=== PATIENT | female | born 1940 | race Caucasian/White ===

== ENCOUNTER 2018-03-05 13:04 | Outpatient (REF) | payer MEDICARE, MEDICAID, SELFPAY ==
[2018-03-05 20:33] LABS: HCT 33.4 % (36.0-46.0); HGB 10.4 g/dL (12.0-15.5); Mean Corp. HGB Concentration 31.1 g/dL (32.0-36.0); Mean Corpuscular Hemoglobin 28.6 pg (27.0-33.0); Mean Corpuscular Volume 91.8 fL (80-95); Mean Platelet Volume 10.2 fL (8.0-11.0); Platelet Count 238 x1000/uL (130-400); RBC 3.64 m/cumm (4.00-5.20); RBC Distribution Width 12.8 % (11.7-14.6); White Blood Cell Count 6.67 k/cumm (4.4-10.8)
[2018-03-05 21:21] LABS: ALT 29 U/L (12-78); AST 23 U/L (15-37); Albumin 3.8 g/dL (3.4-5.0); Alkaline Phosphatase 107 U/L (46-116); Bilirubin, Total 0.2 mg/dL (0.2-1.0); Cholesterol 135 mg/dL (50-200); HDL Cholesterol 40 mg/dL (40-60); LDL CHOLESTEROL 69 mg/dL (<100); Total Protein 7.1 g/dL (6.4-8.2); Triglyceride 282 mg/dL (30-150); Vitamin B12 302 pg/mL (193-986)
[2018-03-05 21:34] LABS: Bilirubin, Direct < 0.05 mg/dL (0.00-0.20)
== END 2018-03-05 13:24 ==
LOC: NCHCN 13:04
PROVIDERS: Visit Provider Nurse Practitioner Family
DX: E11.9 Type 2 diabetes mellitus without complications (principal); I10 Essential (primary) hypertension; D51.9 Vitamin B12 deficiency anemia, unspecified; D63.8 Anemia in other chronic diseases classified elsewhere; E78.5 Hyperlipidemia, unspecified
CPT/HCPCS: 80061; 80076; 83721; 85027; 82607

== ENCOUNTER 2018-05-16 18:19 | Outpatient (REF) | payer MEDICARE, MEDICAID, SELFPAY ==
[2018-05-16 21:04] LABS: HCT 30.1 % (36.0-46.0); HGB 9.5 g/dL (12.0-15.5); Mean Corp. HGB Concentration 31.6 g/dL (32.0-36.0); Mean Corpuscular Hemoglobin 29.2 pg (27.0-33.0); Mean Corpuscular Volume 92.6 fL (80-95); Mean Platelet Volume 10.2 fL (8.0-11.0); Platelet Count 209 x1000/uL (130-400); RBC 3.25 m/cumm (4.00-5.20); White Blood Cell Count 6.95 k/cumm (4.4-10.8)
[2018-05-16 21:21] LABS: Anion Gap 8.8 mmol/L (3-11); BUN 21 mg/dL (7-18); CO2 28.2 mmol/L (21.0-32.0); CREATININE 1.22 mg/dL (0.55-1.02); Calcium 8.7 mg/dL (8.5-10.1); Chloride 106 mmol/L (98-107); Estimated GFR 42.74 (mL/min/1.73m2); Glucose 95 mg/dL (70-100); Magnesium 1.2 mg/dL (1.8-2.4); NT-proBNP 501 pg/mL; Potassium 5.1 mmol/L (3.5-5.1); Sodium 143 mmol/L (136-145); TSH 2.99 uIU/mL (0.358-3.74)
== END 2018-05-16 18:39 ==
LOC: NCHCN 18:19
PROVIDERS: Visit Provider Registered Nurse
DX: R06.02 Shortness of breath (principal); R06.2 Wheezing; I10 Essential (primary) hypertension; E78.5 Hyperlipidemia, unspecified; E11.9 Type 2 diabetes mellitus without complications; D63.8 Anemia in other chronic diseases classified elsewhere
CPT/HCPCS: 80048; 85027; 83735; 83880; 84443

== ENCOUNTER 2018-05-31 12:13 | Outpatient (REF) | payer MEDICARE, MEDICAID, SELFPAY ==
[2018-05-31 20:57] LABS: Anion Gap 7.7 mmol/L (3-11); BUN 23 mg/dL (7-18); CO2 28.3 mmol/L (21.0-32.0); CREATININE 1.07 mg/dL (0.55-1.02); Chloride 104 mmol/L (98-107); Estimated GFR 49.72 (mL/min/1.73m2); Glucose 96 mg/dL (70-100); Potassium 5.4 mmol/L (3.5-5.1); Sodium 140 mmol/L (136-145)
[2018-05-31 20:59] LABS: HCT 32.1 % (36.0-46.0); HGB 10.4 g/dL (12.0-15.5); Mean Corp. HGB Concentration 32.4 g/dL (32.0-36.0); Mean Corpuscular Hemoglobin 29.3 pg (27.0-33.0); Mean Corpuscular Volume 90.4 fL (80-95); Mean Platelet Volume 10.3 fL (8.0-11.0); Platelet Count 261 x1000/uL (130-400); RBC 3.55 m/cumm (4.00-5.20); RBC Distribution Width 12.9 % (11.7-14.6)
== END 2018-05-31 12:33 ==
LOC: NCHCN 12:13
PROVIDERS: Visit Provider Nurse Practitioner Family
DX: I10 Essential (primary) hypertension (principal); E11.9 Type 2 diabetes mellitus without complications; N18.9 Chronic kidney disease, unspecified; D63.8 Anemia in other chronic diseases classified elsewhere
CPT/HCPCS: 80048; 85027

== ENCOUNTER 2018-06-18 11:26 | Outpatient (REF) | payer MEDICARE, MEDICAID, SELFPAY ==
[2018-06-18 21:47] LABS: Potassium 5.1 mmol/L (3.5-5.1)
== END 2018-06-18 11:46 ==
LOC: NCHCN 11:26
PROVIDERS: Visit Provider Nurse Practitioner Family
DX: Z86.39 Personal history of other endocrine, nutritional and metabolic disease (principal)
CPT/HCPCS: 84132

== ENCOUNTER 2018-08-01 10:33 | Outpatient (REF) | payer MEDICARE, MEDICAID, SELFPAY ==
[2018-08-01 20:53] LABS: HCT 33.9 % (36.0-46.0); HGB 10.8 g/dL (12.0-15.5); Mean Corp. HGB Concentration 31.9 g/dL (32.0-36.0); Mean Corpuscular Volume 90.9 fL (80-95); Mean Platelet Volume 10.1 fL (8.0-11.0); Platelet Count 282 x1000/uL (130-400); RBC 3.73 m/cumm (4.00-5.20); RBC Distribution Width 12.6 % (11.7-14.6); White Blood Cell Count 7.18 k/cumm (4.4-10.8)
[2018-08-01 21:00] LABS: Anion Gap 7.4 mmol/L (3-11); BUN 17 mg/dL (7-18); CO2 27.6 mmol/L (21.0-32.0); CREATININE 1.02 mg/dL (0.55-1.02); Chloride 103 mmol/L (98-107); Estimated GFR 52.55 (mL/min/1.73m2); Glucose 114 mg/dL (70-100); Potassium 5.5 mmol/L (3.5-5.1); Sodium 138 mmol/L (136-145)
== END 2018-08-01 10:53 ==
LOC: NCHCN 10:33
PROVIDERS: Visit Provider Nurse Practitioner Family
DX: R53.83 Other fatigue (principal); J44.1 Chronic obstructive pulmonary disease with (acute) exacerbation; K92.1 Melena; D63.8 Anemia in other chronic diseases classified elsewhere; Z86.39 Personal history of other endocrine, nutritional and metabolic disease
CPT/HCPCS: 80048; 85027

== ENCOUNTER 2018-08-27 12:58 | Outpatient (REF) | payer MEDICARE, MEDICAID, SELFPAY ==
[2018-08-27 21:32] LABS: Anion Gap 7.7 mmol/L (3-11); BUN 18 mg/dL (7-18); CO2 27.3 mmol/L (21.0-32.0); CREATININE 1.08 mg/dL (0.55-1.02); Calcium 9.2 mg/dL (8.5-10.1); Chloride 101 mmol/L (98-107); Estimated GFR 49.19 (mL/min/1.73m2); Glucose 105 mg/dL (70-100); Potassium 4.9 mmol/L (3.5-5.1); Sodium 136 mmol/L (136-145)
== END 2018-08-27 13:18 ==
LOC: NCHCN 12:58
PROVIDERS: Visit Provider Nurse Practitioner Family
DX: G89.4 Chronic pain syndrome (principal); E87.5 Hyperkalemia
CPT/HCPCS: 80048

== ENCOUNTER 2018-10-21 15:41 | Outpatient (REF) | payer MEDICARE, MEDICAID, SELFPAY ==
[2018-10-21 20:34] LABS: HCT 31.6 % (36.0-46.0); HGB 9.9 g/dL (12.0-15.5); Mean Corp. HGB Concentration 31.3 g/dL (32.0-36.0); Mean Corpuscular Hemoglobin 28.5 pg (27.0-33.0); Mean Corpuscular Volume 91.1 fL (80-95); Mean Platelet Volume 9.9 fL (8.0-11.0); Platelet Count 277 x1000/uL (130-400); RBC 3.47 m/cumm (4.00-5.20); RBC Distribution Width 12.5 % (11.7-14.6); White Blood Cell Count 8.47 k/cumm (4.4-10.8)
[2018-10-21 20:56] LABS: ALT 22 U/L (12-78); AST 18 U/L (15-37); Albumin 3.8 g/dL (3.4-5.0); Alkaline Phosphatase 113 U/L (46-116); Anion Gap 9.4 mmol/L (3-11); BUN 21 mg/dL (7-18); Bilirubin, Total 0.2 mg/dL (0.2-1.0); CO2 27.6 mmol/L (21.0-32.0); CREATININE 1.13 mg/dL (0.55-1.02); Chloride 103 mmol/L (98-107); Estimated GFR 46.69 (mL/min/1.73m2); Glucose 99 mg/dL (70-100); NT-proBNP 203 pg/mL; Potassium 4.6 mmol/L (3.5-5.1); Sodium 140 mmol/L (136-145); Total Protein 7.1 g/dL (6.4-8.2)
== END 2018-10-21 16:01 ==
LOC: NCHCN 15:41
PROVIDERS: Visit Provider Nurse Practitioner Family
DX: D63.8 Anemia in other chronic diseases classified elsewhere (principal); R60.9 Edema, unspecified
CPT/HCPCS: 80053; 85027; 83880

== ENCOUNTER 2019-02-13 09:08 | Outpatient (REF) | payer MEDICARE, MEDICAID, SELFPAY ==
[2019-02-13 22:38] LABS: COMMENT (LAB VIEW ONLY) 130.15 mg/dL; Microalb ug/mg Crea 11.1 ug/mg Cr
== END 2019-02-13 09:28 ==
LOC: NCHCO 09:08
PROVIDERS: Visit Provider Nurse Practitioner Family
DX: E11.9 Type 2 diabetes mellitus without complications (principal)
CPT/HCPCS: 82043; 82570

== ENCOUNTER 2019-04-29 12:27 | Outpatient (REF) | payer MEDICARE, MEDICAID, SELFPAY ==
[2019-04-29 22:35] LABS: HCT 32.9 % (36.0-46.0); HGB 10.3 g/dL (12.0-15.5); Mean Corp. HGB Concentration 31.3 g/dL (32.0-36.0); Mean Corpuscular Hemoglobin 28.2 pg (27.0-33.0); Mean Corpuscular Volume 90.1 fL (80-95); Mean Platelet Volume 9.8 fL (8.0-11.0); Platelet Count 281 x1000/uL (130-400); RBC 3.65 m/cumm (4.00-5.20); RBC Distribution Width 12.9 % (11.7-14.6); White Blood Cell Count 7.58 k/cumm (4.4-10.8)
[2019-04-29 23:18] LABS: Anion Gap 8.5 mmol/L (3-11); BUN 16 mg/dL (7-18); CO2 29.5 mmol/L (21.0-32.0); CREATININE 1.08 mg/dL (0.55-1.02); Calcium 8.8 mg/dL (8.5-10.1); Chloride 100 mmol/L (98-107); Estimated GFR 49.07 (mL/min/1.73m2); Ferritin 13 ng/mL (8-252); Glucose 171 mg/dL (74-106); Magnesium 1.2 mg/dL (1.8-2.4); Sodium 138 mmol/L (136-145); Vitamin B12 498 pg/mL (193-986)
[2019-04-29 23:28] LABS: Iron 74 ug/dL (50-170)
== END 2019-04-29 12:47 ==
LOC: NCHCN 12:27
PROVIDERS: Visit Provider Nurse Practitioner Family
DX: E11.9 Type 2 diabetes mellitus without complications (principal); D63.8 Anemia in other chronic diseases classified elsewhere; G89.4 Chronic pain syndrome; G25.81 Restless legs syndrome; D23.9 Other benign neoplasm of skin, unspecified; E61.2 Magnesium deficiency; K21.9 Gastro-esophageal reflux disease without esophagitis
CPT/HCPCS: 80048; 85027; 82607; 82728; 83540; 83735

== ENCOUNTER 2020-04-12 23:25 | Outpatient (REF) | payer OTHER, MEDICAID, SELFPAY ==
[2020-04-12 22:25] LABS: COMMENT (LAB VIEW ONLY) 84.41 mg/dL; Microalb ug/mg Crea 7.1 ug/mg Cr
== END 2020-04-12 23:45 ==
LOC: NCHCN 23:25
PROVIDERS: Visit Provider Nurse Practitioner Family
DX: E11.9 Type 2 diabetes mellitus without complications (principal); I10 Essential (primary) hypertension
CPT/HCPCS: 82043; 82570

== ENCOUNTER 2020-07-13 20:36 | Outpatient (REF) | payer OTHER, MEDICAID, SELFPAY ==
[2020-07-13 14:14] LABS: BUN 20 mg/dL (7-18); CREATININE 1.1 mg/dL (0.55-1.02); Calcium 8.9 mg/dL (8.5-10.1); Chloride 105 mmol/L (98-107); Estimated GFR 47.91 (mL/min/1.73m2); Glucose 150 mg/dL (74-106); Magnesium 1.5 mg/dL (1.8-2.4); Potassium 4.7 mmol/L (3.5-5.1); Sodium 141 mmol/L (136-145); Vitamin B12 686 pg/mL (193-986)
[2020-07-13 14:32] LABS: HCT 37.1 % (36.0-46.0); HGB 11.9 g/dL (11.2-15.7); MCH 29.8 pg (27.0-33.0); MCHC 32.1 % (32.0-36.0); MPV 10.3 fL (8.0-11.0); Platelet Count 240 10^3/uL (130-400); RBC 3.99 10^6/uL (3.93-5.22); RDW 11.7 % (11.7-14.6); RDW-SD 39.7 fL; WBC 7.65 10^3/uL (4.4-10.8)
[2020-07-13 14:54] LABS: Hemoglobin A1C 7.4 % (<5.7)
== END 2020-07-13 20:37 | disposition home or self-care (01) ==
LOC: NCHCN 20:36
PROVIDERS: Visit Provider Nurse Practitioner Family
DX: E11.9 Type 2 diabetes mellitus without complications (principal); I10 Essential (primary) hypertension; D63.8 Anemia in other chronic diseases classified elsewhere; K21.9 Gastro-esophageal reflux disease without esophagitis; E61.2 Magnesium deficiency; D51.9 Vitamin B12 deficiency anemia, unspecified
CPT/HCPCS: 80048; 85027; 82607; 83036; 83735

== ENCOUNTER 2020-09-20 16:15 | Outpatient (REF) | payer OTHER, MEDICAID, SELFPAY ==
--- OUTSIDE RECORDS SUMMARY | 2020-09-20 16:18 | XMS_ITS ---
:1940 Author Care Team Providers Name Role Phone Ruy Donaldson Primary Care Provider Unavailable Allergies Code Code System Name Reaction Severity Status Onset Penicillins ? ? Active ? Sulfa ? ? Active ? (Sulfonamide Antibiotics) Medications Name Status Start Date Stop Date ? ? amlodipine 5 mg tablet Active ? Not avail able ammonium lactate 12 % topical cream Active ? Not available aspirin 81 mg tablet,delayed release Active ? Not available atorvastatin 40 mg tablet Active ? Not av ailable carvedilol 25 mg tablet Active ? Not avai lable citalopram 20 mg tablet Active ? Not avai lable [employer] Active ? Not iam ilable furosemide 20 mg tablet Active ? Not avai lable gabapentin 300 mg capsule Active ? Not av ailable hydrocodone 5 mg-acetaminophen 325 mg Active ? Not available tablet Lantus Solostar U-100 Insulin 100 unit/mL Active ? Not available (3 mL) subcutaneous pen loratadine 10 mg tablet Active ? Not avai lable losartan 25 mg tablet Active ? Not availa ble metformin 1,000 mg tablet Active ? Not av ailable mupirocin 2 % topical ointment Active ? N ot available nicotine (polacrilex) 4 mg gum Active ? N ot available omeprazole 20 mg capsule,delayed release Active ? Not available omeprazole 40 mg capsule,delayed release Active ? Not available Ventolin HFA 90 mcg/actuation aerosol Active ? Not available inhaler Vitamin B-12 1,000 mcg tablet Active ? N ot available Vitamin D3 25 mcg (1,000 unit) tablet Active ? Not available Vitamin D3 50 mcg (2,000 unit) capsule Active ? Not available Problems Name Status Onset Date Source ? Carpal Tunnel Syndrome of Left Wrist Active ? History Procedure by Method Active ? History Procedures None recorded. Results Lab Results Date Name Specimen Result Interpretation Description Value Range Status Address ? 03/16/2017 Venipuncture BLD ? Venpn* ? ? Final [facility] ab (Internal) : [address], [place] 03/16/2017 HbA1C BLD High Ha1C 7.0 % 4.0-6 Final [facility] (Hemoglobin .0 % Hospi joo Lab a1C), Blood (Inte rnal): [address] 03/16/2017 BMP, Serum or S High g/r 110 74-10 Final [facility] Plasma mg/dL 6 Hospital L ab mg/dL (Internal) : [address] ? ? S High Bun 18 7-17 Final [facility] try mg/dL mg/dL Hospital L ab (Internal) : [address] ? ? S ? Crea 0.90 0.52- Final [facility] try mg/dL 1.04 Hospital L ab mg/dL (Internal) : [address] ? ? S ? Ca 8.8 8.4-1 Final [facility] try mg/dL 0.2 Hospital L ab mg/dL (Internal) : [address] ? ? S ? Na 137 137-1 Final [facility] try mmol/L 45 Hospital L ab mmol/ (Internal) : L [address] ? ? S ? K 5.1 3.5-5 Final [facility] try mmol/L .1 Hospital L ab mmol/ (Internal) : L [address] ? ? S ? Cl 101 98-10 Final [facility] try mmol/L 7 Hospital L ab mmol/ (Internal) : L [address] ? ? S ? Tco2 26.0 22.0- Final [facility] try mmol/L 30.0 Hospital L ab mmol/ (Internal) : L [address] 03/16/2017 CBC W/ Auto BLD ? Wbc 9.9 5.0-1 Final [facility] Country Diff 10*3/u 0.0 Hospital L ab L 10*3/ (Internal) : uL [address] ? ? BLD Low Rbc 3.32 4.10- Final [facility] try 10*6/u 5.30 Hospital L ab L 10*6/ (Internal) : uL [address] ? ? BLD Low Hgb 9.9 12.0- Final [facility] try g/dL 16.0 Hospital L ab g/dL (Internal) : [address] ? ? BLD Low Hct 30.6 % 37.0- Final [place] [place] [facility] try 47.0 Hospital L ab % (Internal) : [address] ? ? BLD ? Mcv 92.2 80.0- [facility] fL 96.0 [facility] fL (Internal) : [address] ? ? BLD ? Mch 29.8 26.0- Final [facility] try pg 32.0 Hospital L ab pg (Internal) : [address] [place] ? ? BLD ? Mchc 32.4 31.0- Final [place] [place] [facility] try g/dL 35.0 Hospital L ab g/dL (Internal) : [address] [place] ? ? BLD ? Rdw 12.7 % 11.5- Final [place] [facility] try 14.5 Hospital L ab % (Internal) : [address] ? ? BLD ? Plt 224 130-4 Final [place] [facility] try 10*3/u 50 Hospital L ab L 10*3/ (Internal) : [address] ? ? BLD ? Anc 5.61 ? Final [facility] try 10*3/u Hospital L ab L (Internal) : [address] [place] ? ? BLD ? Neutro 57.0 % 40.0- Final [place] [facility] 75.0 Hospital L ab % (Internal) : [address] [place] ? ? BLD ? Lymph 31.9 % 20.0- Final [place] [place] [facility] try 50.0 Hospital L ab % (Internal) : [address] ? ? BLD ? [place] 7.5 % 2.0-1 Final [place] try 0.0 % Hospital L ab (Internal) : [address] [place] ? ? BLD ? Eos 2.8 % 1.0-6 Final [place] try .0 % Hospital L ab (Internal) : [address] [place] ? ? BLD ? Baso 0.5 % 0.0-1 Final [place] [place] [facility] try .0 % Hospital L ab (Internal) : [address] ? ? BLD ? Ig 0.3 % 0.0-0 Final [place] try .9 % Hospital L ab (Internal) : [address] Past Encounters None recorded. Social History Tobacco Smoking Status Former Smoker Vaccine List None recorded. Plan of Care Reminders Provider Appointments None ? ? recorded. Lab None ? ? recorded. Referral None ? ? recorded. Procedures None ? ? recorded. Surgeries None ? ? recorded. Imaging None ? ? recorded. Vitals 01/11/2018 01:00PM Consult 30 Height Weight BMI Blood Pressure 157.48 cm 80.29 kg 32.4 kg/m2 120/54 mm[Hg] 03/16/2017 Height Blood Pressure 157.48 cm 154/62 mm[Hg] 03/16/2017 Weight 80.2 kg 02/27/2017 Height Blood Pressure 157.48 cm 132/56 mm[Hg] 02/27/2017 Weight 80.01 kg 07/30/2015 Height Weight 157.48 cm 78.02 kg
[2020-09-20 21:29] LABS: HCT 31.8 % (36.0-46.0); HGB 9.9 g/dL (11.2-15.7); MCH 28.3 pg (27.0-33.0); MCHC 31.1 % (32.0-36.0); MCV 90.9 fL (80-95); MPV 10.6 fL (8.0-11.0); Platelet Count 249 10^3/uL (130-400); RDW 12.4 % (11.7-14.6); RDW-SD 41.2 fL; WBC 7.78 10^3/uL (4.4-10.8)
[2020-09-20 21:48] LABS: Anion Gap 7.3 mmol/L (3-11); BUN 19 mg/dL (7-18); CO2 27.7 mmol/L (21.0-32.0); CREATININE 1.2 mg/dL (0.55-1.02); Calcium 8.5 mg/dL (8.5-10.1); Chloride 104 mmol/L (98-107); Estimated GFR 43.34 (mL/min/1.73m2); Glucose 168 mg/dL (74-106); Magnesium 1.4 mg/dL (1.8-2.4); Potassium 4.6 mmol/L (3.5-5.1); Sodium 139 mmol/L (136-145); TSH 1.58 uIU/mL (0.36-3.74)
[2020-09-21 17:49] LABS: Ferritin 11 ng/mL (8-252); Folate 12.9 ng/mL (8.6-20.0); Vitamin B12 823 pg/mL (193-986)
== END 2020-09-20 16:16 | disposition home or self-care (01) ==
LOC: NCHCN 16:15
PROVIDERS: Visit Provider Nurse Practitioner Family
DX: D63.8 Anemia in other chronic diseases classified elsewhere (principal); D51.9 Vitamin B12 deficiency anemia, unspecified; G47.62 Sleep related leg cramps
CPT/HCPCS: 80048; 85027; 82607; 82728; 82746; 83735; 84443

== ENCOUNTER 2020-11-03 19:26 | Outpatient (REF) | payer OTHER, MEDICAID, SELFPAY ==
[2020-11-03 21:44] LABS: Abs Immature Grans 0.01 10^3/uL (0.0-0.06); Absolute Basophil Count 0.05 10^3/uL (0.0-0.2); Absolute Eosinophil Count 0.16 10^3/uL (0.0-0.7); Absolute Lymphocyte Count 2.62 10^3/uL (1.2-3.4); Absolute Monocyte Count 0.62 10^3/uL (0.1-0.8); Absolute Neutrophil Count 4.27 10^3/uL (1.2-6.7); Basophils % 0.6; Eosinophils % 2.1; HCT 36.7 % (36.0-46.0); HGB 11.3 g/dL (11.2-15.7); Immature Grans % 0.1; Lymphocytes % 33.9; MCH 27.8 pg (27.0-33.0); MCHC 30.8 % (32.0-36.0); MCV 90.4 fL (80-95); MPV 10.4 fL (8.0-11.0); Neutrophils % 55.3; Nucleated RBC 0 %; Platelet Count 273 10^3/uL (130-400); RBC 4.06 10^6/uL (3.93-5.22); RDW 13.1 % (11.7-14.6); RDW-SD 43.2 fL; WBC 7.73 10^3/uL (4.4-10.8)
[2020-11-03 21:50] LABS: Iron 78 ug/dL (50-170); Total Iron Binding Capacity 426 ug/dL (250-450); Transferrin Sat 18 % (15-50)
[2020-11-03 22:18] LABS: Anion Gap 8.9 mmol/L (3-11); BUN 15 mg/dL (7-18); CO2 28.1 mmol/L (21.0-32.0); Calcium 8.7 mg/dL (8.5-10.1); Chloride 101 mmol/L (98-107); Estimated GFR 53.48 (mL/min/1.73m2); Ferritin 15 ng/mL (8-252); Folate 16.6 ng/mL (8.6-20.0); Glucose 137 mg/dL (74-106); Potassium 5.1 mmol/L (3.5-5.1); Sodium 138 mmol/L (136-145); Vitamin B12 900 pg/mL (193-986)
== END 2020-11-03 19:27 | disposition home or self-care (01) ==
LOC: NCHCN 19:26
PROVIDERS: Visit Provider Nurse Practitioner Family
DX: D63.8 Anemia in other chronic diseases classified elsewhere (principal); D51.9 Vitamin B12 deficiency anemia, unspecified
CPT/HCPCS: 80048; 82607; 82728; 82746; 83540; 83550; 85025

== ENCOUNTER 2021-01-25 11:57 | Outpatient (REF) | payer OTHER, MEDICAID, SELFPAY ==
[2021-01-25 16:16] LABS: COMMENT (LAB VIEW ONLY) 73.93 mg/dL; Microalb ug/mg Crea 11.5 ug/mg Cr
== END 2021-01-25 11:58 | disposition home or self-care (01) ==
LOC: NCHCN 11:57
PROVIDERS: Referring Provider Nurse Practitioner Family; Visit Provider Nurse Practitioner Family
DX: E11.9 Type 2 diabetes mellitus without complications (principal); I10 Essential (primary) hypertension
CPT/HCPCS: 82043; 82570

== ENCOUNTER 2021-04-13 10:59 | Outpatient (REF) | payer OTHER, MEDICAID, SELFPAY ==
[2021-04-13 22:14] LABS: MCH 28.9 pg (27.0-33.0); MCHC 30.8 % (32.0-36.0); MPV 10.2 fL (8.0-11.0); Platelet Count 268 10^3/uL (130-400); RBC 4.15 10^6/uL (3.93-5.22); RDW 12.5 % (11.7-14.6); RDW-SD 43.7 fL
[2021-04-13 22:18] LABS: Anion Gap 9.5 mmol/L (3-11); BUN 20 mg/dL (7-18); CO2 27.5 mmol/L (21.0-32.0); CREATININE 1.2 mg/dL (0.55-1.02); Calcium 8.9 mg/dL (8.5-10.1); Chloride 105 mmol/L (98-107); Estimated GFR 43.23 (mL/min/1.73m2); Glucose 119 mg/dL (74-106); Magnesium 1.6 mg/dL (1.8-2.4); Potassium 4.9 mmol/L (3.5-5.1); Sodium 142 mmol/L (136-145)
[2021-04-13 22:55] LABS: Hemoglobin A1C 7.4 % (<5.7)
== END 2021-04-13 11:00 | disposition home or self-care (01) ==
LOC: NCHCN 10:59
PROVIDERS: Visit Provider Nurse Practitioner Family
DX: E11.9 Type 2 diabetes mellitus without complications (principal); D51.9 Vitamin B12 deficiency anemia, unspecified; E61.2 Magnesium deficiency
CPT/HCPCS: 80048; 85027; 83036; 83735

== ENCOUNTER 2021-08-03 17:19 | Outpatient (REF) | payer MEDICARE, MEDICAID, SELFPAY ==
[2021-08-03 21:32] LABS: Abs Immature Grans 0.02 10^3/uL (0.0-0.06); Absolute Basophil Count 0.04 10^3/uL (0.0-0.2); Absolute Eosinophil Count 0.17 10^3/uL (0.0-0.7); Absolute Lymphocyte Count 3.68 10^3/uL (1.2-3.4); Absolute Neutrophil Count 4.51 10^3/uL (1.2-6.7); Basophils % 0.4; Eosinophils % 1.8; HCT 38.3 % (36.0-46.0); HGB 12.2 g/dL (11.2-15.7); Immature Grans % 0.2; Lymphocytes % 39.9; MCH 29.1 pg (27.0-33.0); MCHC 31.9 % (32.0-36.0); MCV 91.4 fL (80-95); MPV 10.1 fL (8.0-11.0); Monocytes % 8.7; Nucleated RBC 0 %; Platelet Count 252 10^3/uL (130-400); RBC 4.19 10^6/uL (3.93-5.22); RDW 12.5 % (11.7-14.6); RDW-SD 41.3 fL; WBC 9.22 10^3/uL (4.4-10.8)
[2021-08-03 21:49] LABS: ALT 29 U/L (14-59); AST 22 U/L (15-37); Albumin 4.3 g/dL (3.4-5.0); Alkaline Phosphatase 128 U/L (46-116); Anion Gap 8.3 mmol/L (3-11); BUN 22 mg/dL (7-18); Bilirubin, Total 0.4 mg/dL (0.2-1.0); CO2 27.7 mmol/L (21.0-32.0); CREATININE 1.2 mg/dL (0.55-1.02); Calcium 8.9 mg/dL (8.5-10.1); Chloride 103 mmol/L (98-107); Estimated GFR 43.23 (mL/min/1.73m2); Glucose 103 mg/dL (74-106); Potassium 4.7 mmol/L (3.5-5.1); Sodium 139 mmol/L (136-145); Total Protein 7.8 g/dL (6.4-8.2)
--- OUTSIDE RECORDS SUMMARY | 2021-08-04 15:05 | XMS_ITS | CCD ---
:1940 Author Care Team Providers Name Role Phone MERVAT Attending Physician Unavailable Vital Signs Unknown or Not Available. Allergies Allergy Code Allergy Type Reaction Status PENICILLINS (CLASS) 49910 Drug allergy ARM SWELLING Active SULFA (sulfonamide) 0 Drug allergy Pt Unsure Active LATEX 0 Allergy to substance RASH Active Procedures Unknown or Not Available. History of Immunizations Unknown or Not Available. Problems Problem Code Start Date Resolved Date Status Malignant breast [id number] Active neoplasm Results Unknown or Not Available. Active Medications Medication Code Dose Units Frequency Route Modification Start Date/Time Carvedilol 954357 25 MILLIGRAMS TWICE A DAY ORAL 2016 25MG Oral 12:18 Tablet Prescription Detail TAKE 25 MILLIGRAMS ORAL TWIC E A DAY GABAPENTIN 300 0 300 MILLIGRAMS BEDTIME ORAL 2016 MG TABLET 12:18 Prescription Detail TAKE 300 MILLIGRAMS ORAL BED TIME Loratadine 10MG 761981 10 MILLIGRAMS DAILY ORAL 09/22 Oral Tablet 12:18 Prescription Detail TAKE 10 MILLIGRAMS ORAL GIFTY Y Omeprazole 20MG 183426 20 MILLIGRAMS TWICE A ORAL 09/22 Oral Capsule, DAY 12:18 Delayed Release Prescription Detail TAKE 20 MILLIGRAMS ORAL TWIC E A DAY VITAMIN B12 0 000 MICROGRAM DAILY ORAL 09/22/2016 1,000 MCG 12:18 TABLET Prescription Detail TAKE 000 MICROGRAM ORAL GIFTY Y amLODIPine 161098 1 TABLET DAILY ORAL 11/24/2014 Besylate 5MG 11:00 Oral Tablet Prescription Detail TAKE 1 TABLET ORAL DAILY Citalopram 20MG 20021111 20 MILLIGRAMS TWICE A ORAL 11/24 Oral Tablet DAY 10:56 Prescription Detail TAKE 20 MILLIGRAMS ORAL TWIC E A DAY Chlorthalidone [id number] 25 MILLIGRAMS DAILY ORAL 25MG Oral Tablet 10:14 Prescription Detail TAKE 25 MILLIGRAMS ORAL GIFTY Y Aspirin 81MG 420540 81 MILLIGRAMS DAILY ORAL 11/25/19 15 Oral Tablet 10:04 Prescription Detail TAKE 81 MILLIGRAMS ORAL GIFTY Y HYDROcodone 890808 1 TABLET NEEDED ORAL 11/24/2014 bitartrate-acetaminophen EVERY 10:04 5MG-325MG Oral Tablet 6HRS Prescription Detail TAKE 1 TABLET ORAL NEEDED EVERY 6HRS MULTIVITAMINS 0 1 TABLET DAILY BY MOUTH 5 10:04 Prescription Detail TAKE 1 TABLET BY MOUTH DAILY Medications Administered During Visit Unknown or Not Available. Encounters Encounter Diagnosis Diagnosis Code Start Date Encounter for follow-up examination after Z08 01/05/2021 completed treatment for malignant neoplasm Social History Smoking Status Code Start Date End Date Former smoker [id number] 05/14/1986 Patient Decision Aids Unknown or Not Available. Discharge Instructions You were admitted to [facility] on 01/05/2021 11:29 with a principal diagnosis of Encounter for follow-up exa mination after completed treatment for malignant neoplasm You were discharged from [facility] on 01/05/2021 11:29 Should you have any questions prior to d ischarge, please contact a member of your healthcare team. If you have left the spital and have any questions, please contact your primary care physician. Chief Complaint and Reason For Visit Unknown or Not Available. Function Status Unknown or Not Available. Plan of Care Unknown or Not Available. Referral/Transition of Care Unknown or Not Available.
--- OUTSIDE RECORDS SUMMARY | 2021-08-04 15:05 | XMS_ITS | CCD ---
:1940 Author Care Team Providers Name Role Phone MERVAT Attending Physician Unavailable Vital Signs Unknown or Not Available. Allergies Allergy Code Allergy Type Reaction Status PENICILLINS (CLASS) 64948 Drug allergy ARM SWELLING Active SULFA (sulfonamide) 0 Drug allergy Pt Unsure Active LATEX 0 Allergy to substance RASH Active Procedures Unknown or Not Available. History of Immunizations Unknown or Not Available. Problems Problem Code Start Date Resolved Date Status Malignant breast [id number] Active neoplasm Results Unknown or Not Available. Active Medications Medication Code Dose Units Frequency Route Modification Start Date/Time Carvedilol 671340 25 MILLIGRAMS TWICE A DAY ORAL 2016 25MG Oral 12:18 Tablet Prescription Detail TAKE 25 MILLIGRAMS ORAL TWIC E A DAY GABAPENTIN 300 0 300 MILLIGRAMS BEDTIME ORAL 2016 MG TABLET 12:18 Prescription Detail TAKE 300 MILLIGRAMS ORAL BED TIME Loratadine 10MG 612984 10 MILLIGRAMS DAILY ORAL 09/22 Oral Tablet 12:18 Prescription Detail TAKE 10 MILLIGRAMS ORAL GIFTY Y Omeprazole 20MG 460961 20 MILLIGRAMS TWICE A ORAL 09/22 Oral Capsule, DAY 12:18 Delayed Release Prescription Detail TAKE 20 MILLIGRAMS ORAL TWIC E A DAY VITAMIN B12 0 000 MICROGRAM DAILY ORAL 09/22/2016 1,000 MCG 12:18 TABLET Prescription Detail TAKE 000 MICROGRAM ORAL GIFTY Y amLODIPine 795029 1 TABLET DAILY ORAL 11/24/2014 Besylate 5MG 11:00 Oral Tablet Prescription Detail TAKE 1 TABLET ORAL DAILY Citalopram 20MG 20021111 20 MILLIGRAMS TWICE A ORAL 11/24 Oral Tablet DAY 10:56 Prescription Detail TAKE 20 MILLIGRAMS ORAL TWIC E A DAY Chlorthalidone 03073915267 25 MILLIGRAMS DAILY ORAL 25MG Oral Tablet 10:14 Prescription Detail TAKE 25 MILLIGRAMS ORAL GIFTY Y Aspirin 81MG 588193 81 MILLIGRAMS DAILY ORAL 11/25/19 15 Oral Tablet 10:04 Prescription Detail TAKE 81 MILLIGRAMS ORAL GIFTY Y HYDROcodone 632482 1 TABLET NEEDED ORAL 11/24/2014 bitartrate-acetaminophen EVERY 10:04 5MG-325MG Oral Tablet 6HRS Prescription Detail TAKE 1 TABLET ORAL NEEDED EVERY 6HRS MULTIVITAMINS 0 1 TABLET DAILY BY MOUTH 5 10:04 Prescription Detail TAKE 1 TABLET BY MOUTH DAILY Medications Administered During Visit Unknown or Not Available. Encounters Encounter Diagnosis Diagnosis Code Start Date Encounter for screening mammogram for malignant [id number] 01/19/2021 neoplasm of breast Social History Smoking Status Code Start Date End Date Former smoker [id number] 05/14/1986 Patient Decision Aids Unknown or Not Available. Discharge Instructions You were admitted to [facility] on 01/19/2021 13:01 with a principal diagnosis of Encounter for screening tone mogram for malignant neoplasm of breast You were discharged from [facility] on 01/19/2021 13:01 Should you have any questions prior to d ischarge, please contact a member of your healthcare team. If you have left the ho spital and have any questions, please contact your primary care physician. Chief Complaint and Reason For Visit Unknown or Not Available. Function Status Unknown or Not Available. Plan of Care Unknown or Not Available. Referral/Transition of Care Unknown or Not Available.
--- OUTSIDE RECORDS SUMMARY | 2021-08-04 15:05 | XMS_ITS ---
[...] Venipuncture BLD ? Venpn* ? ? Final [facility] ab (Internal) : [address] [place] 03/16/2017 HbA1C BLD High Ha1C 7.0 % 4.0-6 Final [facility] (Hemoglobin .0 % Hospi joo Lab a1C), Blood (Inte rnal): [address] 03/16/2017 BMP, Serum or S High g/r 110 74-10 Final [facility] Plasma mg/dL 6 Hospital L ab mg/dL (Internal) : [address] ? ? S High Bun 18 7-17 Final [facility] try mg/dL mg/dL Hospital L ab (Internal) : [address] ? ? S ? Crea 0.90 0.52- Final [facility] try mg/dL 1.04 Hospital L ab mg/dL (Internal) : [address] ? ? S ? Ca 8.8 8.4-1 Final [facility] try mg/dL 0.2 Hospital L ab mg/dL (Internal) : [address] t ? ? S ? Na 137 137-1 Final [facility] try mmol/L 45 Hospital L ab mmol/ (Internal) : L [address] ? ? S ? K 5.1 3.5-5 Final [facility] try mmol/L .1 Hospital L ab mmol/ (Internal) : L [address] ? ? S ? Cl 101 98-10 Final [facility] try mmol/L 7 Hospital L ab mmol/ (Internal) : L [address] ? ? S ? Tco2 26.0 22.0- Final [facility] try mmol/L 30.0 Hospital L ab mmol/ (Internal) : L [address] 03/16/2017 CBC W/ Auto BLD ? Wbc 9.9 5.0-1 Final [facility] [place] Diff 10*3/u 0.0 Hospital L ab L 10*3/ (Internal) : uL [address] ? ? BLD Low Rbc 3.32 4.10- Final [place] [facility] try 10*6/u 5.30 Hospital L ab L 10*6/ (Internal) : uL [address] ? ? BLD Low Hgb 9.9 12.0- Final [facility] try g/dL 16.0 Hospital L ab g/dL (Internal) : [address] [place] ? ? BLD Low Hct 30.6 % 37.0- Final [place] [facility] try 47.0 Hospital L ab % (Internal) : [address] [place] ? ? BLD ? Mcv 92.2 80.0- Final [place] try fL 96.0 Hospital L ab fL (Internal) : [address] [place] ? ? BLD ? Mch 29.8 26.0- Final [place] [facility] try pg 32.0 Hospital L ab pg (Internal) : [address] [place] ? ? BLD ? Mchc 32.4 31.0- Final [facility] try g/dL 35.0 Hospital L ab g/dL (Internal) : [address] [place] ? ? BLD ? Rdw 12.7 % 11.5- Final [facility] try 14.5 Hospital L ab % (Internal) : [address] [place] ? ? BLD ? Plt 224 130-4 Final [place] [facility] try 10*3/u 50 Hospital L ab L 10*3/ (Internal) : uL [address] [place] ? ? BLD ? Anc 5.61 ? [facility] 10*3/u Hospital L ab L (Internal) : [address] [place] ? ? BLD ? Neutro 57.0 % 40.0- Final [place] [facility]try 75.0 Hospital L ab % (Internal) : [address] [place] ? ? BLD ? Lymph 31.9 % 20.0- Final [facility] try 50.0 Hospital L ab % (Internal) : [address] [place] ? ? BLD ? [place] 7.5 % 2.0-1 Final [facility] try 0.0 % Hospital L ab (Internal) : [address] [place] ? ? BLD ? Eos 2.8 % 1.0-6 Final [facility] try .0 % Hospital L ab (Internal) : [address] [place] ? ? BLD ? Baso 0.5 % 0.0-1 Final [facility] try .0 % Hospital L ab (Internal) : [address] ? ? BLD ? Ig 0.3 % 0.0-0 Final [facility] try .9 % Hospital L ab [...]
== END 2021-08-03 17:20 | disposition home or self-care (01) ==
LOC: NCHCN 17:19
PROVIDERS: Visit Provider Registered Nurse
DX: R19.7 Diarrhea, unspecified (principal)
CPT/HCPCS: 80053; 85025

== ENCOUNTER 2021-10-31 10:07 | Outpatient (REF) | payer MEDICARE, MEDICAID, SELFPAY ==
[2021-10-31 14:45] LABS: Anion Gap 8.1 mmol/L (3-11); BUN 21 mg/dL (7-18); CO2 28.9 mmol/L (21.0-32.0); CREATININE 1.3 mg/dL (0.55-1.02); Calcium 8.8 mg/dL (8.5-10.1); Chloride 101 mmol/L (98-107); Estimated GFR 39.41 (mL/min/1.73m2); Glucose 185 mg/dL (74-106); Potassium 4.9 mmol/L (3.5-5.1); Sodium 138 mmol/L (136-145)
== END 2021-10-31 10:08 | disposition home or self-care (01) ==
LOC: NCHCN 10:07
PROVIDERS: Visit Provider Nurse Practitioner Family
DX: I10 Essential (primary) hypertension (principal)
CPT/HCPCS: 80048

== ENCOUNTER 2021-11-16 16:08 | Outpatient (REF) | payer MEDICARE, MEDICAID, SELFPAY ==
[2021-11-16 17:42] LABS: Anion Gap 7.9 mmol/L (3-11); BUN 15 mg/dL (7-18); CO2 28.1 mmol/L (21.0-32.0); CREATININE 1.3 mg/dL (0.55-1.02); Calcium 8.8 mg/dL (8.5-10.1); Chloride 101 mmol/L (98-107); Estimated GFR 39.41 (mL/min/1.73m2); Glucose 122 mg/dL (74-106); Potassium 4.5 mmol/L (3.5-5.1); Sodium 137 mmol/L (136-145)
== END 2021-11-16 16:09 | disposition home or self-care (01) ==
LOC: NCHCN 16:08
PROVIDERS: Visit Provider Nurse Practitioner Family
DX: I10 Essential (primary) hypertension (principal)
CPT/HCPCS: 80048

== ENCOUNTER 2022-04-27 14:14 | Outpatient (REF) | payer MEDICARE, MEDICAID, SELFPAY ==
[2022-04-27 21:09] LABS: HCT 37.9 % (36.0-46.0); HGB 11.9 g/dL (11.2-15.7); MCH 29.7 pg (27.0-33.0); MCHC 31.4 % (32.0-36.0); MCV 95 fL (80-95); MPV 9.9 fL (8.0-11.0); Platelet Count 232 10^3/uL (130-400); RBC 4.01 10^6/uL (3.93-5.22); RDW 11.9 % (11.7-14.6); RDW-SD 41.6 fL; WBC 9.42 10^3/uL (4.4-10.8)
[2022-04-27 22:16] LABS: Anion Gap 10.6 mmol/L (3-11); BUN 15 mg/dL (7-18); CO2 25.4 mmol/L (21.0-32.0); CREATININE 1.4 mg/dL (0.55-1.02); Calcium 8.7 mg/dL (8.5-10.1); Chloride 101 mmol/L (98-107); Glucose 146 mg/dL (74-106); Potassium 4.7 mmol/L (3.5-5.1); Sodium 137 mmol/L (136-145)
== END 2022-04-27 14:15 | disposition home or self-care (01) ==
LOC: NCHCN 14:14
PROVIDERS: Visit Provider Nurse Practitioner Family
DX: E11.9 Type 2 diabetes mellitus without complications (principal); N18.9 Chronic kidney disease, unspecified; D63.8 Anemia in other chronic diseases classified elsewhere
CPT/HCPCS: 80048; 85027

== ENCOUNTER 2022-08-01 16:07 | Outpatient (REF) | payer MEDICARE, MEDICAID, SELFPAY ==
[2022-08-01 16:22] LABS: COMMENT (LAB VIEW ONLY) 143.83 mg/dL; Microalb ug/mg Crea 16.4 ug/mg Cr
== END 2022-08-01 16:08 | disposition home or self-care (01) ==
LOC: NCHCN 16:07
PROVIDERS: Visit Provider Nurse Practitioner Family
DX: E11.9 Type 2 diabetes mellitus without complications (principal); I10 Essential (primary) hypertension
CPT/HCPCS: 82043; 82570

== ENCOUNTER 2022-11-06 14:51 | Outpatient (REF) | payer MEDICARE, MEDICAID, SELFPAY ==
[2022-11-06 22:32] LABS: HGB 11.8 g/dL (11.2-15.7); MCH 29.8 pg (27.0-33.0); MCHC 31.9 % (32.0-36.0); MCV 93 fL (80-95); Platelet Count 235 10^3/uL (130-400); RBC 3.96 10^6/uL (3.93-5.22); RDW 12.2 % (11.7-14.6); RDW-SD 41.7 fL; WBC 9.06 10^3/uL (4.4-10.8)
[2022-11-06 22:46] LABS: Anion Gap 7.6 mmol/L (3-11); BUN 23 mg/dL (7-18); CO2 29.4 mmol/L (21.0-32.0); CREATININE 1.3 mg/dL (0.55-1.02); Calcium 8.8 mg/dL (8.5-10.1); Chloride 106 mmol/L (98-107); Estimated GFR 41.31 (mL/min/1.73m2); Glucose 142 mg/dL (74-106); Magnesium 1.6 mg/dL (1.8-2.4); Potassium 5.3 mmol/L (3.5-5.1); Sodium 143 mmol/L (136-145)
[2022-11-06 22:55] LABS: Hemoglobin A1C 7.3 % (<5.7)
== END 2022-11-06 14:52 | disposition home or self-care (01) ==
LOC: NCHCN 14:51
PROVIDERS: Visit Provider Nurse Practitioner Family
DX: E11.9 Type 2 diabetes mellitus without complications (principal); E83.42 Hypomagnesemia; I10 Essential (primary) hypertension
CPT/HCPCS: 80048; 85027; 83036; 83735

== ENCOUNTER 2023-06-04 14:57 | Outpatient (REF) | payer MEDICARE, MEDICAID, SELFPAY ==
[2023-06-04 15:20] LABS: HCT 38.7 % (36.0-46.0); HGB 12.5 g/dL (11.2-15.7); MCH 29.5 pg (27.0-33.0); MCHC 32.3 % (32.0-36.0); MCV 91 fL (80-95); MPV 10.1 fL (8.0-11.0); Platelet Count 242 10^3/uL (130-400); RBC 4.24 10^6/uL (3.93-5.22); RDW 12.4 % (11.7-14.6); RDW-SD 41.1 fL; WBC 8.93 10^3/uL (4.4-10.8)
[2023-06-04 16:15] LABS: Hemoglobin A1C 7.5 % (<5.7)
[2023-06-04 16:49] LABS: Anion Gap 6.4 mmol/L (3-11); BUN 21 mg/dL (7-18); CO2 28.6 mmol/L (21.0-32.0); CREATININE 1.3 mg/dL (0.55-1.02); Calcium 9.2 mg/dL (8.5-10.1); Chloride 104 mmol/L (98-107); Estimated GFR 41.06 (mL/min/1.73m2); Glucose 190 mg/dL (74-106); Potassium 4.7 mmol/L (3.5-5.1); Sodium 139 mmol/L (136-145)
== END 2023-06-04 14:58 | disposition home or self-care (01) ==
LOC: NCHCN 14:57
PROVIDERS: PCP Nurse Practitioner Family; Visit Provider Nurse Practitioner Family
DX: E11.9 Type 2 diabetes mellitus without complications (principal); D63.8 Anemia in other chronic diseases classified elsewhere; N18.9 Chronic kidney disease, unspecified
CPT/HCPCS: 80048; 85027; 83036

== ENCOUNTER 2023-12-04 15:48 | Outpatient (REF) | payer MEDICARE, MEDICAID, SELFPAY ==
[2023-12-04 16:08] LABS: HCT 37.7 % (36.0-46.0); HGB 11.8 g/dL (11.2-15.7); MCH 29.1 pg (27.0-33.0); MCHC 31.3 % (32.0-36.0); MCV 93 fL (80-95); MPV 10.4 fL (8.0-11.0); Platelet Count 224 10^3/uL (130-400); RBC 4.05 10^6/uL (3.93-5.22); RDW 12.1 % (11.7-14.6); RDW-SD 41.8 fL; WBC 6.84 10^3/uL (4.4-10.8)
[2023-12-04 16:41] LABS: ALT 24 U/L (14-59); AST 13 U/L (15-37); Albumin 3.7 g/dL (3.4-5.0); Alkaline Phosphatase 119 U/L (46-116); Anion Gap 6.6 mmol/L (3-11); BUN 28 mg/dL (7-18); Bilirubin, Total 0.25 mg/dL (0.2-1.0); CO2 29.4 mmol/L (21.0-32.0); CREATININE 1.4 mg/dL (0.55-1.02); Calcium 9.2 mg/dL (8.5-10.1); Chloride 105 mmol/L (98-107); Estimated GFR 37.56 (mL/min/1.73m2); Glucose 175 mg/dL (74-106); Potassium 4.9 mmol/L (3.5-5.1); Sodium 141 mmol/L (136-145); Total Protein 7.6 g/dL (6.4-8.2); Vitamin B12 232 pg/mL (193-986)
[2023-12-04 17:05] LABS: COMMENT (LAB VIEW ONLY) 42.07 mg/dL
== END 2023-12-04 15:49 | disposition home or self-care (01) ==
LOC: NCHCN 15:48
PROVIDERS: PCP Nurse Practitioner Family; Visit Provider Nurse Practitioner Family
DX: D63.8 Anemia in other chronic diseases classified elsewhere (principal); I10 Essential (primary) hypertension; E11.9 Type 2 diabetes mellitus without complications; Z79.899 Other long term (current) drug therapy
CPT/HCPCS: 80053; 85027; 82043; 82570; 82607; 83735

== ENCOUNTER 2024-07-22 12:43 | Outpatient (REF) | payer MEDICARE, MEDICAID, SELFPAY ==
[2024-07-22 15:22] LABS: COMMENT (LAB VIEW ONLY) 99.14 mg/dL; Microalb ug/mg Crea 7.7 ug/mg Cr
== END 2024-07-22 12:44 | disposition home or self-care (01) ==
LOC: NCHCN 12:43
PROVIDERS: PCP Nurse Practitioner Family; Visit Provider Nurse Practitioner Family
DX: E11.9 Type 2 diabetes mellitus without complications (principal)
CPT/HCPCS: 82043; 82570

== ENCOUNTER 2024-10-14 22:39 | Outpatient (REF) | payer MEDICARE, MEDICAID, SELFPAY ==
[2024-10-14 21:03] LABS: HGB 11.4 g/dL (11.2-15.7); MCH 29.2 pg (27.0-33.0); MCHC 31.7 % (32.0-36.0); MCV 92 fL (80-95); MPV 9.9 fL (8.0-11.0); Platelet Count 234 10^3/uL (130-400); RDW 12.2 % (11.7-14.6); RDW-SD 41.2 fL; WBC 8.91 10^3/uL (4.4-10.8)
[2024-10-14 21:14] LABS: Iron 64 ug/dL (50-170); Total Iron Binding Capacity 344 ug/dL (250-450); Transferrin Sat 19 % (15-50)
[2024-10-14 21:31] LABS: Anion Gap 5.7 mmol/L (3-11); BUN 15 mg/dL (7-18); CO2 31.3 mmol/L (21.0-32.0); CREATININE 1.1 mg/dL (0.55-1.02); Calcium 9.1 mg/dL (8.5-10.1); Chloride 101 mmol/L (98-107); Estimated GFR 49.86 (mL/min/1.73m2); Ferritin 27 ng/mL (8-252); Glucose 113 mg/dL (74-106); Potassium 4.9 mmol/L (3.5-5.1); Sodium 138 mmol/L (136-145)
== END 2024-10-14 22:40 | disposition home or self-care (01) ==
LOC: NCHCN 22:39
PROVIDERS: PCP Nurse Practitioner Family; Visit Provider Family Medicine
DX: E11.9 Type 2 diabetes mellitus without complications (principal); E61.1 Iron deficiency
CPT/HCPCS: 80048; 85027; 82728; 83540; 83550

== ENCOUNTER 2025-04-06 15:07 | Outpatient (REF) | payer MEDICARE, MEDICAID, SELFPAY ==
[2025-04-06 21:17] LABS: Abs Immature Grans 0.02 10^3/uL (0.0-0.06); HCT 37.8 % (36.0-46.0); HGB 12.0 g/dL (11.2-15.7); Immature Grans % 0.2 %; MCH 29.3 pg (27.0-33.0); MCHC 31.7 % (32.0-36.0); MCV 92 fL (80-95); MPV 10.0 fL (8.0-11.0); Platelet Count 242 10^3/uL (130-400); RBC 4.10 10^6/uL (3.93-5.22); RDW 12.2 % (11.7-14.6); RDW-SD 40.9 fL; WBC 9.90 10^3/uL (4.4-10.8)
[2025-04-06 21:30] LABS: Iron 90 ug/dL (50-170); Total Iron Binding Capacity 368 ug/dL (250-425)
[2025-04-06 21:32] LABS: Magnesium 1.4 mg/dL (1.6-2.6)
[2025-04-06 21:33] LABS: ALT 24 U/L (10-49); AST 28 U/L (<34); Albumin 4.4 g/dL (3.4-5.0); Alkaline Phosphatase 81 U/L (46-116); Anion Gap 7.4 mmol/L (3-11); BUN 18 mg/dL (9-23); Bilirubin, Total 0.40 mg/dL (0.2-1.2); CO2 30.6 mmol/L (20.0-31.0); Calcium 9.2 mg/dL (8.3-10.6); Chloride 104 mmol/L (98-107); Glucose 77 mg/dL (74-106); Potassium 5.2 mmol/L (3.5-5.1); Sodium 142 mmol/L (136-145); Total Protein 7.0 g/dL (5.7-8.2)
[2025-04-06 21:34] LABS: Ferritin 14 ng/mL (7-271); Vitamin D 25 Total 31 ng/mL (30-100)
== END 2025-04-06 15:08 | disposition home or self-care (01) ==
LOC: NCHCN 15:07
PROVIDERS: PCP Nurse Practitioner Family; Visit Provider Nurse Practitioner Family
DX: M85.80 Other specified disorders of bone density and structure, unspecified site (principal); D63.8 Anemia in other chronic diseases classified elsewhere; I10 Essential (primary) hypertension
CPT/HCPCS: 80053; 82306; 82728; 83540; 83550; 83735; 85025